=== PATIENT | male | born 1990 ===

== ENCOUNTER 2024-08-14 14:31 | Emergency (ER) | payer SELFPAY ==
[~2024-08-14] VITALS: Ht 175.3 cm; Wt 102.7 kg
[2024-08-14 14:47] VITALS: TEMP 98.4
[2024-08-14] MEDS ORDERED: Ibuprofen 600 MG TAB PO ONE (18:30)
[2024-08-14] MEDS ORDERED: Home HYDROcodone/Acetaminophen 5/325 MG #4 TABS/PACK PO ONE (19:30)
[2024-08-14] MEDS ORDERED: NORCO 325 MG-51 TAB PO (20:14)
[2024-08-14 20:38] VITALS: BP 137/78; PULSE 65
== END 2024-08-14 20:50 | disposition home or self-care (01) ==
LOC: COL.ER 14:31
DX: S92.341A Displaced fracture of fourth metatarsal bone, right foot, initial encounter for closed fracture (principal); S92.321A Displaced fracture of second metatarsal bone, right foot, initial encounter for closed fracture; S92.331A Displaced fracture of third metatarsal bone, right foot, initial encounter for closed fracture; W01.0XXA Fall on same level from slipping, tripping and stumbling without subsequent striking against object, initial encounter; X50.1XXA Overexertion from prolonged static or awkward postures, initial encounter; Y93.01 Activity, walking, marching and hiking